=== PATIENT | female | born 1940 | race Caucasian/White ===

== ENCOUNTER 2016-07-30 13:34 | Observation (INO) | payer OTHER, MEDICARE ==
[~2016-07-30] VITALS: Ht 165.1 cm; Wt 43.3 kg
[~2016-07-30 13:34] MED LIST: ADVAIR 100-501 EACH INH; ADVAIR DISKU 11 UNIT INH; ALBUTEROL0.09 MG/A1 INH; ALBUTEROL2.5 MG/3 M INH/SOL; ALEVE220 M2 PO; AMOX-CLAV 875-1 EACH PO; BREO ELLIPTA 11 EACH; COUMADIN4 M1 PO; CYCLOBENZAPRINE5 M2 PO; DOCUSATE SODIU100 M3 PO; ESTRADIOL0.0375 MG1 TOP; FLEXERIL 5MG TAB5 MG PO; HYDROXYZINE HCL25 M2 PO; IBUPROFEN600 M1 PO; LOVENOX40 MG/0.1 SC; NEXIUM40 M1 PO; OXYGEN NAS; PROAIR HFA8.5 GM INH; PROVENTIL HFA6.7 GM INH; SYMBICORT 16010.2 GM INH; VIVELLE-DOT1 EAC1 TD; VIVELLE-DOT1 EAC2 TOP; ZOFRAN ODT4 M1 SL
--- NOTE | 2016-07-30 13:42 | NUR ---
BIBA FROM HOME, WITH C/O DIARRHEA X 1 HOUR AND RIGHT LOWER ABD BACK RADIATING TO BACK. DENIES NAUSEA OR VOMITING. PT HAS GT AND "TUBE DRAINING PANCREAS". HX APPY
--- NOTE | 2016-07-30 13:54 | NUR ---
DAUGHTER AND AT BEDSIDE AT THIS TIME.
--- NOTE | 2016-07-30 13:54 | NUR ---
STUDENT PA IN TO EVAL.
--- NOTE | 2016-07-30 14:17 | ED GI/GU/ABDOMINAL COMPLAINT ---
See Addendum History of Present Illness General Chief Complaint: Abdominal Pain/Flank Pain Stated Complaint: BIBA ABD PAIN Source: patient, old records Exam Limitations: no limitations Allergies Coded Allergies: codeine (HYPERVENTILATE - SOB 11/18/15) Triage Note: BIBA FROM HOME, WITH C/O DIARRHEA X 1 HOUR AND RIGHT LOWER ABD BACK RADIATING TO BACK. Triage Nurses Notes Reviewed? yes ? N Is pt currently ? No Onset: Gradual Duration: getting worse Timing: recent history Quality/Severity: sharpness, severe, stabbing, throbbing Severity Numbers: 8 Location: generalized abdomen Radiation: no radiation HPI: Patient is a 76-year-old female with past medical history of lung metastasis and pancreatic cancer, COPD and recent admission to [facility] approximately one month ago for concerns of pulmonary embolism-DVT and aspiration pneumonia. Patient currently is on warfarin. Patient does have a six-month history in which she had concerns of a "blocked" bile duct which she currently has an indwelling drain. Patient also has a feeding tube placed remotely. Patient complains of a six-day history of abdominal pain most localized to the epigastric region and nonradiating. Patient and family members state that in the past day patient has had significant worsening of pain and has had significant worsening of generalized weakness and fatigue lethargy and concerns of dehydration. Denies any fevers but does have chills. Denies any back pain hematuria dysuria. Patient had loose watery stool production today no blood no melena noted. Denies any chest pain or pain jaw pain shortness of breath cough hemoptysis DIARRHEA NOTED IN LAST 24 HOURS NO ABX USE RECENTLY (RETA PALENCIA,CRUZ) Vital Signs & Intake/Output Vital Signs & Intake/Output Vital Signs Date Time Temp Pulse Resp B/P Pulse O2 O2 Flow FiO2 Ox Delivery Rate 07/31 1420 Nasal 3.0L Cannula 07/31 1420 97 Nasal 3.0L Cannula ED Intake and Output 08/01 0000 07/31 1200 Intake Total 800 5813 Output Total 325 310 Balance 475 5503 Intake, IV 800 5773 Intake, Oral 0 0 Intake, Tube 40 Irrigant Number 0 0 Bowel Movements Output, Other 125 90 Output, Urine 200 220 Patient 95 lb 7.01 oz Weight Reconcile Medications Albuterol Sulfate (Proair Hfa) 90 MCG HFA.AER.AD 2 PUF INH Q4-6 PRN PRN BREATHING PROBLEMS (Reported) Esomeprazole (Nexium) 40 MG CAPSULE.DR 1 CAP PO DAILY GI (Reported) Estradiol (Vivelle-Dot) 1 EACH PATCH.TDSW 0.0375 MG TD SW HORMONE REPLACEMENT (Reported) Fluticasone/Vilanterol (Breo Ellipta 100-25 Mcg INH) 100 MCG-25 MCG/DOSE BLST.W.DEV BREATHING PROBLEMS (Reported) Tramadol HCl 50 MG TABLET 1 TAB PO Q6P PRN PAIN (Reported) Warfarin Sodium (Coumadin) 4 MG TABLET 1 TAB PO DAILY BLOOD THINER Hold this medication today (07/04). please start taking this medication 4 mg begning from 07/04/16. Check INR on 07/05/16 and report result to PCP, so he can dose medication accordingly. (PING MONDRAGON,JEFFREY Rosales) Past History Travel History Traveled to [place] past 21 day No Medical History Any Pertinent Medical History? 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 No (CRUZ ESQUIVEL) Review of Systems Review of Systems Constitutional: Reports: see HPI, chills, weakness. EENTM: Reports: no symptoms. Respiratory: Reports: no symptoms. Cardiovascular: Reports: no symptoms. GI: Reports: see HPI, abdominal pain. Genitourinary: Reports: no symptoms. Musculoskeletal: Reports: no symptoms. Skin: Reports: no symptoms. Neurological/Psychological: Reports: no symptoms. Hematologic/Endocrine: Reports: no symptoms. Immunologic/Allergic: Reports: no symptoms. All Other Systems: Reviewed and Negative (CRUZ ESQUIVEL) Physical Exam Physical Exam General Appearance: no apparent distress, cachetic Head: atraumatic Eyes: Bilateral: normal appearance, PERRL, EOMI. Ears, Nose, Throat, Mouth: hearing grossly normal Neck: normal inspection, supple Respiratory: normal breath sounds, chest non-tender, no respiratory distress Cardiovascular: regular rate/rhythm Peripheral Pulses: 2+ brachial (R), 2+ brachial (L) Gastrointestinal: normal bowel sounds, soft, GENERALIZED POINT TENDERNESS NOTED Back: normal inspection Extremities: normal range of motion Skin: intact, normal color, warm/dry Core Measures ACS in differential dx? No Severe Sepsis Present: Yes BC x2: Yes Lactic Acid x2: Yes IV ABX Broad Spectrum: Yes NS/LR Started: Yes Septic Shock Present: Yes BC x2: Yes Lactic Acid: Yes IV ABX Broad Spectrum: Yes Focused Exam Completed: Yes NS/LR 30ml/kg w/in 3hrs: Yes IV Vasopressors started: No (RETA PALENCIA,CRUZ) Progress Differential Diagnosis: AAA, AMI, appendicitis, biliary colic, bowel obstruction , colon cancer, diverticulitis, endometritis, esophageal varices, gastritis, hepatitis, hernia, hemorrhoids, ischemic bowel, inflamm bowel dis, kidney stone, Farzaneh-Heidi tear, ovarian cyst, ovarian torsion, pancreatitis, PID/cervicitis, peptic ulcer, PUD/GERD, perforated viscous, SBO, UTI/pyelo Diagnostic Imaging: Viewed by Me: CT Scan. Radiology Impression: acute abnormality Initial ED EKG: SINUS TACHYCARDIA 125 BPM Comments: PATIENT: REESE THOMAS PRESENT AGE: 76 PATIENT ACCOUNT NO: [id number] : 41 LOCATION: [facility] ORDERING PHYSICIAN: CRUZ PALENCIA SERVICE DATE: 07/30/16 EXAM TYPE: CAT - CT ABD & PELVIS W IV CONTRAST; CT CHEST W IV CONTRAST EXAMINATION: CT CHEST WITH CONTRAST CT ABDOMEN AND PELVIS WITH CONTRAST CLINICAL INFORMATION: Epigastric pain, history of metastasis lung to pancreas. COMPARISON: CT abdomen and pelvis dated 06/28/[address] chest dated 06/21/2016. TECHNIQUE: Multidetector volumetric imaging was performed from the thoracic inlet through the pubic symphysis following administration of intravenous contrast material. A total of 80 mL Optiray 320 was administered. Sagittal and coronal reformatted images were obtained on the technologist's workstation. DLP: 347 mGy-cm FINDINGS: CHEST: LUNG: The large right pneumothorax is slightly decreased in size as compared to prior. There is slightly improved aeration along the anterior margin of the right upper lobe as compared to prior. Pleural thickening/scarring is again noted, most pronounced at the inferior/anterior margin of the right middle lobe. Postsurgical changes of prior right lower lobectomy are evident. The previously seen rounded opacity at the lateral costophrenic sulcus of the left lower lobe is increased in size, now measuring 2.9 x 2.2 cm (previously 1.8 x 1.2 cm). Two additional, new rounded opacities are present just anterior to this in the left lower lobe, measuring 1.9 x 1.9 cm and 1.5 x 1.3 cm. These are most concerning for metastatic disease. Additionally, there is a spiculated lesion in the left upper lobe (image 13/60 of series 3) which measures 0.8 x 0.6 cm, increased in size from 0.6 x 0.5 cm on the prior study. A few calcified granulomas are present. Numerous small subcentimeter pulmonary nodules are identified which are not significantly changed as compared to prior. The 2 mm nodule in the left lower lobe on image 40/60 of series 3, as an example, is unchanged. Mild to moderate underlying centrilobular pulmonary emphysema is noted. MEDIASTINUM: There is a centrally hypodense lymph node in the AP window (image 22/122 of series 2) which has not significantly changed in size from prior, measuring 2.5 x 1.5 cm. No additional mediastinal adenopathy is identified. Calcific atherosclerosis is present in the thoracic aorta and coronary arteries. Heart is normal in size. No pericardial effusion. PERICARDIUM/PLEURA: There is a trace fluid component to the large right hydropneumothorax. This is unchanged from the prior CT abdomen and pelvis dated 06/28/2016. No pleural based lesions are identified. CHEST WALL/AXILLA: Unremarkable. ABDOMEN/PELVIS: LIVER, GALLBLADDER, BILIARY TREE: Again seen are multiple hypoattenuating, water density hepatic lesions, the largest of which are present in hepatic segment 2, measuring 1.6 and 1.4 cm in greatest diameter, unchanged from prior. Percutaneous biliary stent extends through the right hepatic lobe and common bile duct, terminating in the second portion of the duodenum. Gallbladder is absent. PANCREAS: Again seen is irregular dilatation of the pancreatic duct with significant pancreatic atrophy. As previously noted, the pancreatic duct measures up to 1.3 cm in diameter at the pancreatic tail, unchanged. The obstructing lesion is not well seen by CT. SPLEEN: Unremarkable. ADRENAL GLANDS: Unremarkable. KIDNEYS AND URETERS: Multiple bilateral renal cysts are again noted. No suspicious lesions are identified. A 2 mm nonobstructing calculus is again seen is the left lower renal pole. Kidneys enhance symmetrically. No hydronephrosis. Ureters are unremarkable. BLADDER: Unremarkable. GASTROINTESTINAL TRACT: Percutaneous gastrostomy Peg tube terminates at the gastric antrum. Stomach, small bowel, and colon are normal in caliber. There is diffuse wall thickening in the colon with mild mucosal hyperemia and mild pericolonic fat stranding, most likely due to a diffuse infectious colitis. Other causes of pancreatitis are also on the differential. There is a column of fecal material in the terminal ileum, likely due to delayed bowel transit. No small bowel dilatation. No significant intraperitoneal free fluid or free air. ABDOMINAL WALL: No significant hernia is appreciated. LYMPHOVASCULAR STRUCTURES: Calcific atherosclerosis is present in the abdominal aorta. No adenopathy. PELVIC VISCERA: Uterus is not identified, likely surgically absent. OSSEUS STRUCTURES: Diffuse idiopathic skeletal hyperostosis is present in the thoracic spine with hyperkyphosis. There is right convex lumbar scoliosis with multilevel degenerative disc disease and facet arthropathy in the lower lumbar spine. Spinous processes are surgically absent from L3 through L5-S1, consistent with prior posterior decompression. Marked facet arthropathy is present in these regions. IMPRESSION: CHEST: 1. No significant change in the large chronic ex vacuo right hydropneumothorax, predominantly gas with a trace effusion. 2. Three rounded foci of soft tissue density in the left lung at the lateral costophrenic sulcus, most compatible with metastatic disease. 3. Slight increase in the size of an 8 mm spiculated nodule in the left upper lobe (previously 0.6 cm), also concerning for metastatic disease. 4. Unchanged enlarged AP window lymph node. ABDOMEN AND PELVIS: 1. Diffuse wall thickening and inflammation in the colon, most likely due to an infectious pancolitis. 2. Multiple unchanged foci of hypoattenuation in the liver, most likely due to cysts. 3. Percutaneous gastrostomy tube, unchanged. Percutaneous biliary stent remains in place, terminating in the second portion of the duodenum. 4. No significant intraperitoneal free fluid. 5. Diffuse pancreatic ductal dilatation with associated pancreatic atrophy, unchanged. (CRUZ ESQUIVEL) Plan of Care: Orders Procedure Date/time Status Change service to 07/31 1630 Active Code Status 07/31 1629 Active RT: Evaluation 07/31 1434 Active Wolf, Insertion/Removal/Asses 07/31 1158 Active Code Status 07/31 1151 Complete TRC EVALUATION (GEN) 07/31 UNK Complete THERAPIST ORDERS 07/31 UNK Complete OXYGEN SETUP (GEN) 07/31 UNK Complete Discharge Patient 07/31 UNK Active Patient currently is in no apparent distress however patient was complaining of generalized abdominal pain. Patient was noted to have a critical finding of leukocytosis however initially there was concerns of worsening metastasis due to patient's significant leukocytosis and abdominal pain. There were no source to patient's leukocytosis and patient had no fever and was antibiotics were initially not administered. The blood work for her complete metabolic panel had hemolyzed in which the CT scan was delayed however WHEN CT scan was resulted for concerns of pancolitis was likely infectious process that antibiotics were immediately administered. Patient was given 3 L of normal saline resuscitation with no improvement of blood pressure. Patient currently NOW HAS signs and symptoms of septic shock Patient currently is DNR/DNI and with central line placement was discussed with the family and patient reports currently deciding whether or not to proceed with this invasive procedure. Discussed risk and benefits with patient with central line placement Patient had recurrence of abdominal pain in which 2 mg of morphine was administered in intervals. PT AND FAMILY DECIDED ON PLACEMENT OF CENTRAL LINE PT WAS ADMITTED TO HOSPITALIST TO ICU FOR SEPTIC SHOCK DISCUSSED ADMISSION WITH DR FENG CENTRAL LINE WAS PLACED BY RESIDENT (CRUZ ESQUIVEL) ED Sepsis Exam Date of Focused Sepsis Exam: 07/30/16 Time of Focused Sepsis Exam: 1740 Sepsis Cardiac Exam: Tachycardia Sepsis Resp Exam: CTA Sepsis Cap Refill Exam: <2 Sec Sepsis Peripheral Pulse Exam: Weak Sepsis Peripheral Pulse Location: Dorsalis Pedis Sepsis Skin Color Exam: Normal for Ethnicity Skin Temp/Moisture Exam: Warm/Dry (CRUZ ESQUIVEL) Departure Departure Disposition: STILL A PATIENT Condition: Critical Clinical Impression Primary Impression: Sepsis Secondary Impressions: Leukocytosis, Pancolitis Referrals: CORREA MD,VENKAT A. (PCP/Family) Departure Forms: Customer Survey General Discharge Information Admission Note Spoke With: KITTY SANTANA MD Documentation of Exam: Documentation of any treatments & extenuating circumstances including Concerns Regarding Discharge (functional status, medication knowledge or non-compliance, living conditions, etc.) that warrant an admission rather than observation: [ DISCUSSED PT WITH DR SANTANA AND SHE ADVISED PT TO BE ADMITTED TO ICU FOR SEPTIC SHOCK PT REQUIRES CENTRAL LINE PLACEMENT, IV ABX, IV FLUID RESUSCITATION, REPEAT LABS STOOL AND BLOOD CX PENDING, GI CONSULT] (RETA PALENCIA,CRUZ) PA/WOODEN BARREL MECHANIC Co-Sign Statement Statement: ED Attending supervision documentation- [X] I saw and evaluated the patient. I have also reviewed all the pertinent lab results and diagnostic results. I agree with the findings and the plan of care as documented in the PA's/WOODEN BARREL MECHANIC's documentation. [] I have reviewed the ED Record and agree with the PA's/WOODEN BARREL MECHANIC's documentation. [] Additions or exceptions (if any) to the PAs/WOODEN BARREL MECHANIC's note and plan are summarized below: [] (SHAQ MONDRAGON,HANH Medina) PA/WOODEN BARREL MECHANIC Co-Sign Statement Statement: ED Attending supervision documentation- [X] I saw and evaluated the patient. I have also reviewed all the pertinent lab results and diagnostic results. I agree with the findings and the plan of care as documented in the PA's/WOODEN BARREL MECHANIC's documentation. [X] I have reviewed the ED Record and agree with the PA's/WOODEN BARREL MECHANIC's documentation. [] Additions or exceptions (if any) to the PAs/WOODEN BARREL MECHANIC's note and plan are summarized below: [Patient has known metastatic cancer has a draining biliary tube patient's white count is up to 68,000 and she is hypotensive. Patient had a large diarrheal bowel movement earlier today and now has abdominal distention and abdominal pain. Her CAT scan is consistent with pancolitis. She may be suffering from C. difficile colitis. At this point the family would like a triple-lumen catheter inserted for her persistent hypotension despite multiple liters of fluids. I'll supervise the insertion of the triple-lumen.] (PING MONDRAGON,JEFFREY Rosales) Procedures Central Line Central Line Lumen: triple Central Line Procedure: Yes: bentadine prep?, sterile drapes applied, sterile dressing applied. Central Line Position: internal jugular (R) Anesthesia: lidocaine 1% CC's of Anesthesia: 4 Complications: none Central Line Post Position: sutured, good blood return, position confirmed w/ CXR Progress: Performed by SLIME Fleming, RVU goes to SLIME Fleming (TYRESE PALENCIA,LY) Critical Care Note Critical Care Note Critical Care Time: 75-104 min (RETA PALENCIA,CRUZ) Anion Gap 6, Estimated GFR > 60, Glucose 78, Calcium 7.0 L, Phosphorus 4.4, Magnesium 1.7, Total Bilirubin 0.6, AST 14, ALT 34, Albumin 1.5 L, PT 18.0 H, INR 1.72 H, CBC w Diff MAN DIFF ORDERED, RBC 2.93 L, MCV 103.1 H, MCH 34.9 H , RDW 17.5 H, MPV 8.8, Gran % 96.5 H, Lymphocytes % 2.1 L, Monocytes % 1.3 L , Eosinophils % 0.1, Basophils % 0 L, Absolute Granulocytes 71.6 H, Segmented Neutrophils 93 H, Band Neutrophils 2, Absolute Lymphocytes 1.6, Monocytes 5, Absolute Monocytes 1.0 H, Absolute Eosinophils 0.1, Absolute Basophils 0, Platelet Estimate INCREASED, Polychromasia 1+, Poikilocytosis 1+, Anisocytosis 1 +, Macrocytic Cells 1+, Ovalocytes 1+, Stomatocytes FEW, PUBS MCHC 33.8, Fld Total RBCs Counted 100 07/31/16 0100: Lactic Acid Cancelled 07/30/16 2255: Lactic Acid 0.8, PT Cancelled, INR Cancelled 07/30/16 2245: Urine Color YEL, Urine Clarity CLEAR, Urine pH 6.0, Ur Specific [place] 1.015, Urine Protein NEG, Urine Ketones NEG, Urine Nitrite NEG, Urine Bilirubin NEG, Urine Urobilinogen 0.2, Ur Leukocyte Esterase NEG, Ur Microscopic EXAM NOT REQUIRED, Urine Hemoglobin NEG, Urine Glucose NEG Microbiology 07/31 119 BODY FLUID: Body Fluid Culture - RES 07/31 119 BODY FLUID: Gram Stain - RES 07/30 2349 UPPER RESP: Surveillance Culture - RECD 07/30 2349 GI: Surveillance Culture - RECD 07/30 2244 URINE ROUT: Urine Culture - RES Patient currently is in no apparent distress however patient was complaining of generalized abdominal pain. Patient was noted to have a critical finding of leukocytosis however initially there was concerns of worsening metastasis due to patient's significant leukocytosis and abdominal pain. There were no source to patient's leukocytosis and patient had no fever and was antibiotics were initially not administered. The blood work for her complete metabolic panel had hemolyzed in which the CT scan was delayed however WHEN CT scan was resulted for concerns of pancolitis was likely infectious process that antibiotics were immediately administered. Patient was given 3 L of normal saline resuscitation with no improvement of blood pressure. Patient currently NOW HAS signs and symptoms of septic shock Patient currently is DNR/DNI and with central line placement was discussed with the family and patient reports currently deciding whether or not to proceed with this invasive procedure. Discussed risk and benefits with patient with central line placement Patient had recurrence of abdominal pain in which 2 mg of morphine was administered in intervals. PT AND FAMILY DECIDED ON PLACEMENT OF CENTRAL LINE PT WAS ADMITTED TO HOSPITALIST TO ICU FOR SEPTIC SHOCK DISCUSSED ADMISSION WITH DR FENG CENTRAL LINE WAS PLACED BY RESIDENT (CRUZ ESQUIVEL) ED Sepsis Exam Date of Focused Sepsis Exam: 07/30/16 Time of Focused Sepsis Exam: 1740 Sepsis Cardiac Exam: Tachycardia Sepsis Resp Exam: CTA Sepsis Cap Refill Exam: <2 Sec Sepsis Peripheral Pulse Exam: Weak Sepsis Peripheral Pulse Location: Dorsalis Pedis Sepsis Skin Color Exam: Normal for Ethnicity Skin Temp/Moisture Exam: Warm/Dry (CRUZ ESQUIVEL) Departure Departure Disposition: STILL A PATIENT Condition: Critical Clinical Impression Primary Impression: Sepsis Secondary Impressions: Leukocytosis, Pancolitis Referrals: CORREA VENKAT MONDRAGON (PCP/Family) Departure Forms: Customer Survey General Discharge Information Admission Note Spoke With: KITTY SANTANA MD Documentation of Exam: Documentation of any treatments & extenuating circumstances including Concerns Regarding Discharge (functional status, medication knowledge or non-compliance, living conditions, etc.) that warrant an admission rather than observation: [ DISCUSSED PT WITH DR SANTANA AND SHE ADVISED PT TO BE ADMITTED TO ICU FOR SEPTIC SHOCK PT REQUIRES CENTRAL LINE PLACEMENT, IV ABX, IV FLUID RESUSCITATION, REPEAT LABS STOOL AND BLOOD CX PENDING, GI CONSULT] (CRUZ ESQUIVEL) PA/WOODEN BARREL MECHANIC Co-Sign Statement Statement: ED Attending supervision documentation- [X] I saw and evaluated the patient. I have also reviewed all the pertinent lab results and diagnostic results. I agree with the findings and the plan of care as documented in the PA's/WOODEN BARREL MECHANIC's documentation. [] I have reviewed the ED Record and agree with the PA's/WOODEN BARREL MECHANIC's documentation. [] Additions or exceptions (if any) to the PAs/WOODEN BARREL MECHANIC's note and plan are summarized below: [] (SHAQ MONDRAGON,HANH Medina) PA/WOODEN BARREL MECHANIC Co-Sign Statement Statement: ED Attending supervision documentation- [X] I saw and evaluated the patient. I have also reviewed all the pertinent lab results and diagnostic results. I agree with the findings and the plan of care as documented in the PA's/WOODEN BARREL MECHANIC's documentation. [X] I have reviewed the ED Record and agree with the PA's/WOODEN BARREL MECHANIC's documentation. [] Additions or exceptions (if any) to the PAs/WOODEN BARREL MECHANIC's note and plan are summarized below: [Patient has known metastatic cancer has a draining biliary tube patient's white count is up to 68,000 and she is hypotensive. Patient had a large diarrheal bowel movement earlier today and now has abdominal distention and abdominal pain. Her CAT scan is consistent with pancolitis. She may be suffering from C. difficile colitis. At this point the family would like a triple-lumen catheter inserted for her persistent hypotension despite multiple liters of fluids. I'll supervise the insertion of the triple-lumen.] (PING MONDRAGON,JEFFREY Rosales) Procedures Central Line Central Line Lumen: triple Central Line Procedure: Yes: bentadine prep?, sterile drapes applied, sterile dressing applied. Central Line Position: internal jugular (R) Anesthesia: lidocaine 1% CC's of Anesthesia: 4 Complications: none Central Line Post Position: sutured, good blood return, position confirmed w/ CXR Progress: Performed by SLIME Fleming, RVU goes to SLIME Fleming (TYRESE PALENCIA,LY) Critical Care Note Critical Care Note Critical Care Time: 75-104 min (RETA PALENCIA,CRUZ)
[2016-07-30] MEDS ORDERED: TRAMADOL HCL50 M1 PO (14:19)
--- NOTE | 2016-07-30 14:39 | NUR ---
RCUZ PALENCIA IN TO EVAL AT THIS TIME. AND DAUGHTER AT BEDSIDE.
--- NOTE | 2016-07-30 15:09 | NUR ---
BLOODWORK, SST,LAV,BLUE,FELIZ AND PINK TOP TUBES SENT TO LAB.
[2016-07-30 15:19] LABS: ABSOLUTE BASOPHIL COUNT 0 /CUMM (0.0-0.2); ABSOLUTE EOSINOPHIL COUNT 0 /CUMM (0.0-0.7); ABSOLUTE GRANULOCYTE CT 65.5 /CUMM (1.4-6.5); ABSOLUTE MONOCYTE COUNT 1.3 /CUMM (0.10-0.60); BASOPHIL % 0 % (0.0-2.0); EOSINOPHIL % 0 % (0-5); GRANULOCYTE % 96.6 % (42.2-75.2); HEMATOCRIT 34.3 % (37-47); MEAN CORPUSCULAR HGB CONC 33.2 G/DL (33.0-37.0); MEAN CORPUSCULAR VOLUME 102.5 FL (81.0-99.0); MEAN PLATELET VOLUME 8.4 FL (7.4-10.4); PLATELET COUNT 530 /CUMM (130-400); RBC DISTRIBUTION WIDTH 17.6 % (11.5-14.5); RED BLOOD CELL CT 3.35 /CUMM (4.20-5.40)
[2016-07-30 15:33] LABS: WHITE BLOOD CELL COUNT 67.8 /CUMM (4.8-10.8)
--- NOTE | 2016-07-30 15:33 | NUR ---
CRITICAL TEST RESULTS [id number] REESE THOMAS 76 F TESTS AND RESULTS: WBC: 67.8 Results received and read back by: SAIDA PELAEZ Results received date and time: 07/30/16 1533 The following provider was notified of the results, and read the results back: CRUZ PALENCIA. Notified date and time: 07/30/16 at 1533
[2016-07-30 15:41] LABS: PT 14.6 SEC (9.4-12.5); PTT 31 SEC (25-37)
--- NOTE | 2016-07-30 15:45 | NUR ---
ATTEMPT X2 FOR 2ND SET BC&SST
--- NOTE | 2016-07-30 15:50 | NUR ---
ASSUMED CARE OF PT. PT INFORMED OF PLAN OF CARE OF CT SCAN AND SECOND SET OF BLOOD CULTURES. PT RESTING QUIETLY, STATES NO NEEDS AT PRESENT
--- NOTE | 2016-07-30 16:33 | NUR ---
SECOND SET OF BLOOD CULTURES DRAWN AND REDRAW SST SENT TO LAB. PT MEDICATED WITH MORPHINE AND SECOND LITER IF IVF STARTED
--- NOTE | 2016-07-30 17:16 | NUR ---
BILIARY DRAIN LEAKING YELLOW/GREEN FLUID AROUND TUBE. NOTED THAT TUBE APPEARS DISLODGED (SUTURES THAT SHOULD BE AT SKIN LEVEL ARE STICKING OUT APPROX 4 INCHES FROM SKIN). FAMILY REPORTS THAT TUBE DID GET PULLED OUT SOME A FEW WEEKS AGO. FAMILY STATES LEAKAGE AROUND TUBE STARTED TODAY. DRESSING REMOVED. SITE CLEANED WITH CHLORHEXIDINE AND REDRESSED WITH DRY DRESSING. GT TUBE ALSO REDRESSED. GTUBE SITE WITHOUT REDNESS OR SKIN BREAKDOWN L
--- NOTE | 2016-07-30 17:24 | NUR ---
PT SENT FOR CT SCAN
--- NOTE | 2016-07-30 17:51 | NUR ---
RETURNED FROM CT SCAN. IVF BOLUS SECOND BAG HALF WAY INFUSED. IV FLUSHED AND ARM STRAIGHTENED TO ENCOURAGE FLOW THROUGH LINE. MANUAL B/P CHECKED AND REPORTED TO CRUZ MCDUFFIE
--- NOTE | 2016-07-30 18:46 | CT SCAN REPORT ---
EXAMINATION: CT CHEST WITH CONTRAST CT ABDOMEN AND PELVIS WITH CONTRAST CLINICAL INFORMATION: Epigastric pain, history of metastasis lung to pancreas. COMPARISON: CT abdomen and pelvis dated 06/28/[address] chest dated 06/21/2016. TECHNIQUE: Multidetector volumetric imaging was performed from the thoracic inlet through the pubic symphysis following administration of intravenous contrast material. A total of 80 mL Optiray 320 was administered. Sagittal and coronal reformatted images were obtained on the technologist's workstation. DLP: 347 mGy-cm FINDINGS: CHEST: LUNG: The large right pneumothorax is slightly decreased in size as compared to prior. There is slightly improved aeration along the anterior margin of the right upper lobe as compared to prior. Pleural thickening/scarring is again noted, most pronounced at the inferior/anterior margin of the right middle lobe. Postsurgical changes of prior right lower lobectomy are evident. The previously seen rounded opacity at the lateral costophrenic sulcus of the left lower lobe is increased in size, now measuring 2.9 x 2.2 cm (previously 1.8 x 1.2 cm). Two additional, new rounded opacities are present just anterior to this in the left lower lobe, measuring 1.9 x 1.9 cm and 1.5 x 1.3 cm. These are most concerning for metastatic disease. Additionally, there is a spiculated lesion in the left upper lobe (image 13/60 of series 3) which measures 0.8 x 0.6 cm, increased in size from 0.6 x 0.5 cm on the prior study. A few calcified granulomas are present. Numerous small subcentimeter pulmonary nodules are identified which are not significantly changed as compared to prior. The 2 mm nodule in the left lower lobe on image 40/60 of series 3, as an example, is unchanged. Mild to moderate underlying centrilobular pulmonary emphysema is noted. MEDIASTINUM: There is a centrally hypodense lymph node in the AP window (image 22/122 of series 2) which has not significantly changed in size from prior, measuring 2.5 x 1.5 cm. No additional mediastinal adenopathy is identified. Calcific atherosclerosis is present in the thoracic aorta and coronary arteries. Heart is normal in size. No pericardial effusion. PERICARDIUM/PLEURA: There is a trace fluid component to the large right hydropneumothorax. This is unchanged from the prior CT abdomen and pelvis dated 06/28/2016. No pleural based lesions are identified. CHEST WALL/AXILLA: Unremarkable. ABDOMEN/PELVIS: LIVER, GALLBLADDER, BILIARY TREE: Again seen are multiple hypoattenuating, water density hepatic lesions, the largest of which are present in hepatic segment 2, measuring 1.6 and 1.4 cm in greatest diameter, unchanged from prior. Percutaneous biliary stent extends through the right hepatic lobe and common bile duct, terminating in the second portion of the duodenum. Gallbladder is absent. PANCREAS: Again seen is irregular dilatation of the pancreatic duct with significant pancreatic atrophy. As previously noted, the pancreatic duct measures up to 1.3 cm in diameter at the pancreatic tail, unchanged. The obstructing lesion is not well seen by CT. SPLEEN: Unremarkable. ADRENAL GLANDS: Unremarkable. KIDNEYS AND URETERS: Multiple bilateral renal cysts are again noted. No suspicious lesions are identified. A 2 mm nonobstructing calculus is again seen is the left lower renal pole. Kidneys enhance symmetrically. No hydronephrosis. Ureters are unremarkable. BLADDER: Unremarkable. GASTROINTESTINAL TRACT: Percutaneous gastrostomy Peg tube terminates at the gastric antrum. Stomach, small bowel, and colon are normal in caliber. There is diffuse wall thickening in the colon with mild mucosal hyperemia and mild pericolonic fat stranding, most likely due to a diffuse infectious colitis. Other causes of pancreatitis are also on the differential. There is a column of fecal material in the terminal ileum, likely due to delayed bowel transit. No small bowel dilatation. No significant intraperitoneal free fluid or free air. ABDOMINAL WALL: No significant hernia is appreciated. LYMPHOVASCULAR STRUCTURES: Calcific atherosclerosis is present in the abdominal aorta. No adenopathy. PELVIC VISCERA: Uterus is not identified, likely surgically absent. OSSEUS STRUCTURES: Diffuse idiopathic skeletal hyperostosis is present in the thoracic spine with hyperkyphosis. There is right convex lumbar scoliosis with multilevel degenerative disc disease and facet arthropathy in the lower lumbar spine. Spinous processes are surgically absent from L3 through L5-S1, consistent with prior posterior decompression. Marked facet arthropathy is present in these regions. IMPRESSION: CHEST: 1. No significant change in the large chronic ex vacuo right hydropneumothorax, predominantly gas with a trace effusion. 2. Three rounded foci of soft tissue density in the left lung at the lateral costophrenic sulcus, most compatible with metastatic disease. 3. Slight increase in the size of an 8 mm spiculated nodule in the left upper lobe (previously 0.6 cm), also concerning for metastatic disease. 4. Unchanged enlarged AP window lymph node. ABDOMEN AND PELVIS: 1. Diffuse wall thickening and inflammation in the colon, most likely due to an infectious pancolitis. 2. Multiple unchanged foci of hypoattenuation in the liver, most likely due to cysts. 3. Percutaneous gastrostomy tube, unchanged. Percutaneous biliary stent remains in place, terminating in the second portion of the duodenum. 4. No significant intraperitoneal free fluid. 5. Diffuse pancreatic ductal dilatation with associated pancreatic atrophy, unchanged.
--- NOTE | 2016-07-30 18:50 | NUR ---
COMPLAINING ON NEW ONSET ABDOMINAL PAIN AFTER GETTING CT SCAN. STATES IT IS A BURNING PAIN 8 OUT OF 10. GIVEN MORPHINE
--- NOTE | 2016-07-30 19:01 | NUR ---
CRUZ IN TO SEE PT. CRUZ NOTIFIED THAT PT IS STILL HAVING ABDOMINAL PAIN DESPITE GETTING MORPHINE
--- NOTE | 2016-07-30 20:19 | NUR ---
LY PALENCIA IN TO PLACE CENTRAL LINE
--- NOTE | 2016-07-30 20:57 | NUR ---
CENTRAL LINE PLACED IN RIGHT CHEST BY LY PALENCIA. PT TOLERATED PROCEDURE WELL. POSITIVE BLOOD RETURN IN ALL THREE PORTS OF CENTRAL LINE. LINE DRESSED WITH STERILE DRESSING AND BIOPATCH
--- NOTE | 2016-07-30 21:07 | NUR ---
HANDS COOL, UNABLE TO OBTAIN GOOD SAT READING. SATS SHOWING 89% ON ROOM AIR WITH POOR WAVE FORM. PLACED ON 2 LITERS A PRECAUTION
--- NOTE | 2016-07-30 21:25 | NUR ---
PT RESTING QUIETLY. NO URGE TO VOID. HAS NOT VOIDED SINCE ARRIVAL TO ED. S/P 3 LITERS IVF INFUSED, CURRENTLY ON 4TH LITER OF FLUID
--- NOTE | 2016-07-30 21:31 | History & Physical ---
JOVANYCRUZ 07/30/162130: General Information and HPI MD Statement: I have seen and personally examined REESE THOMAS and documented this H&P. The patient is a 76 year old F who presented with a patient stated chief complaint of [Abdominal pain and diarrhea]. 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 Patient reports sharp abdominal pain located in the in the epigastric area going to the right hypochondrium and also radiating to the back it's constantly around 8-9 out of 10 in pain is present all the time she does not know any relieving factors. She reports diarrhea for the past 3 days for the past 24 hours had had about 5 motions it's not extraordinarily foul-smelling and has no blood staining it. He denies any fevers but followed has history of chills he has no nausea or vomiting. Patient has a recent antibiotic use ampicillin and Augmentin with in the past 1 month. This patient has been on tube feedings since last admission in mid June when she was found to have dysphagia aspirating she does not know the type of tube feeds will use but reports that she puts water flushes 133 mL 3 times a day around a total of 400 mL. Patient denies any shortness of breath, palpitation, dizziness, lightheadedness, change in urine frequency, painful while micturating. Allergies/Medications Allergies: Coded Allergies: codeine (HYPERVENTILATE - SOB 11/18/15) Home Med list Albuterol Sulfate (Proair Hfa) 90 MCG HFA.AER.AD 2 PUF INH Q4-6 PRN PRN BREATHING PROBLEMS (Reported) Esomeprazole (Nexium) 40 MG CAPSULE.DR 1 CAP PO DAILY GI (Reported) Estradiol (Vivelle-Dot) 1 EACH PATCH.TDSW 0.0375 MG TD SW HORMONE REPLACEMENT (Reported) Fluticasone/Vilanterol (Breo Ellipta 100-25 Mcg INH) 100 MCG-25 MCG/DOSE BLST.W.DEV BREATHING PROBLEMS (Reported) Tramadol HCl 50 MG TABLET 1 TAB PO Q6P PRN PAIN (Reported) Warfarin Sodium (Coumadin) 4 MG TABLET 1 TAB PO DAILY BLOOD THINER Hold this medication today (07/04). please start taking this medication 4 mg begning from 07/04/16. Check INR on 07/05/16 and report result to PCP, so he can dose medication accordingly. 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 Review of Systems Review of Systems Constitutional: Reports: chills. Denies: fever. EENTM: Denies: blurred vision, double vision. Cardiovascular: Denies: chest pain, palpitations. Respiratory: Denies: cough, short of breath. GI: Reports: see HPI. Genitourinary: Denies: dysuria, frequency, urgency. Musculoskeletal: Denies: no symptoms. Skin: Denies: no symptoms. Hematologic/Endocrine: Denies: bruising, bleeding. All Other Systems: Reviewed and Negative Exam & Diagnostic Data Last 24 Hrs of Vital Signs/I&O Vital Signs Date Time Temp Pulse Resp B/P Pulse O2 O2 Flow FiO2 Ox Delivery Rate 07/30 2309 99.5 122 18 100/61 98 Nasal 2.0L Cannula 07/30 2105 121 22 94/55 Nasal 2.0L Cannula 07/30 2006 116 90/50 07/30 1850 97.8 113 16 92/50 95 Room Air 07/30 1751 119 18 84/50 07/30 1648 95/50 07/30 1644 96.0 124 18 75/40 92 Room Air 07/30 1353 99.4 118 20 95/52 95 Room Air Room Air Intake & Output 07/30 1600 07/30 0800 07/30 0000 Intake Total 1000 Output Total Balance 1000 Intake, IV 1000 Patient 94 lb 15.99 oz Weight Physical Exam General Appearance Alert, Oriented X3, Cooperative, No Acute Distress Skin No Rashes, No Breakdown HEENT Atraumatic, very dry mucous membranes Neck Supple, No JVD Cardiovascular Regular Rate, Normal S1, Normal S2, No Murmurs Lungs Clear to Auscultation, Normal Air Movement Abdomen Normal Bowel Sounds, Soft, generalized tenderness more pronounced at the epigastric area and right hypochondrium, the area around the PEG tube and the bile duct tube ddoes not show evidence of infection Neurological Normal Speech, Normal Tone Extremities No Clubbing, No Cyanosis, cold extremities with pitting edema +2 Vascular weak pulses Last 24 Hrs of Labs/Alcon: Laboratory Tests 07/30/16 2255: Lactic Acid Pending 07/30/16 2245: Urine Color YEL, Urine Clarity CLEAR, Urine pH 6.0, Ur Specific [place] 1.015, Urine Protein NEG, Urine Ketones NEG, Urine Nitrite NEG, Urine Bilirubin NEG, Urine Urobilinogen 0.2, Ur Leukocyte Esterase NEG, Ur Microscopic EXAM NOT REQUIRED, Urine Hemoglobin NEG, Urine Glucose NEG 07/30/16 1630: Anion Gap 5, Estimated GFR > 60, BUN/Creatinine Ratio 34.0 H, Glucose 84, Lactic Acid 2.0, Calcium 7.7 L, Total Bilirubin 0.6, AST 16, ALT 37, Alkaline Phosphatase 175 H, Troponin I < 0.01, Total Protein 4.5 L, Albumin 1.8 L, Globulin 2.7, Albumin/Globulin Ratio 0.7 L, Amylase < 30 L, Lipase < 10 L 07/30/16 1500: PT 14.6 H, INR 1.40 H, APTT 31, CBC w Diff MAN DIFF ORDERED, RBC 3.35 L, MCV 102.5 H, MCH 34.0 H, RDW 17.6 H, MPV 8.4, Gran % 96.6 H, Lymphocytes % 1.5 L, Monocytes % 1.9, Eosinophils % 0, Basophils % 0 L, Absolute Granulocytes 65.5 H, Segmented Neutrophils 88 H, Band Neutrophils 8 H, Absolute Lymphocytes 1.0 L, Lymphocytes 2 L, Monocytes 2, Absolute Monocytes 1.3 H, Absolute Eosinophils 0, Absolute Basophils 0, Platelet Estimate VERIFIED BY SMEAR, Anisocytosis 1+, Macrocytic Cells 1+, PUBS MCHC 33.2 Microbiology 07/30 2309 UPPER RESP: Surveillance Culture - ORD 07/30 2309 GI: Surveillance Culture - ORD 07/30 2254 BODY FLUID: Body Fluid Culture - ORD 07/30 2254 BODY FLUID: Gram Stain - ORD 07/30 224 URINE ROUT: Urine Culture - RECD 07/30 1630 BLOOD: Blood Culture - RECD 07/30 1511 BLOOD: Blood Culture - RECD 07/30 143 STOOL: Clostridium difficile Toxin A & B - ORD 07/30 143 STOOL: Stool Culture - ORD Diagnostic Data EKG Results Sinus tachycardia 1 25 bpm regular with normal axis and no ST-T wave changes QRS shows evidence of ventricular hypertrophy CXR Results 1. Right IJ central venous catheter terminates near the cavoatrial junction 2. Chronic large extra-axial right pneumothorax, unchanged. 3. Nodular opacities in the left lower lobe are better seen on recent CT. Other Results CT Abdomen/Pelvis: ABDOMEN AND PELVIS: 1. Diffuse wall thickening and inflammation in the colon, most likely due to an infectious pancolitis. 2. Multiple unchanged foci of hypoattenuation in the liver, most likely due to cysts. 3. Percutaneous gastrostomy tube, unchanged. Percutaneous biliary stent remains in place, terminating in the second portion of the duodenum. 4. No significant intraperitoneal free fluid. 5. Diffuse pancreatic ductal dilatation with associated pancreatic atrophy, unchanged. Assessment/Plan Assessment: 76 years old lady with advanced lung cancer and metastasis with dysphagia and PEG tube in place presenting with abdominal pain and diarrhea for the past [address] scan evidence of colitis and recent history of antibiotic use. On presentation the patient was hypotensive and tachycardic with evidence of volume depletion. Problem list Hypotension probably from volume depletion or septic shock Hyponatremia Colitis Leukocytosis with bandemia Severe Malnutrition We'll admit the patient to the intensive care unit check vital signs every one hour, patient has received 4 L of bolus normal saline will give 500 mL bolus and then keep on high maintenance 250 mL/h, patient will get frequent reassessment at which time bolus can be given if still volume depleted and not maintaining pressure. Will get a repeat lactic acid, Blood culture, urine culture, culture of gallbladder fluid from the tube IV ceftriaxone 1000 mg daily and IV Flagyl 500 mg every 8 Patient is nothing by mouth will get nutritional evaluation for tube feeding and decompression of water flushes 400 mL per day she was taking is very little. Patient has PE and is supposed to be on warfarin but is subtherapeutic with INR of 1.4 will give 5 mg of PEG tube warfarin, recheck INR tomorrow and continue to dose Coumadin while patient subtherapeutic will continue to be on Lovenox 40 mg daily Normal saline will address the hyponatremia will follow up subsequent levels and address accordingly. TRC nebs and nebulization as needed per respiratory CODE STATUS: DNI/DNR As Ranked By This Provider Problem List: 1. History of COPD 2. Sepsis 3. Pancolitis 4. Dehydration 5. Subtherapeutic anticoagulation 6. COPD (chronic obstructive pulmonary disease) Core Measures/Miscellaneous Acute Coronary Syndrome ACS Diagnosis: No Cerebrovascular Accident CVA/TIA Diagnosis: No Congestive Heart Failure CHF Diagnosis: No Venous Thromboembolism VTE Risk Factors: Acute medical illness, Age > 40, Cancer/chemo/oth therapy VTE Prophylaxis Ordered Inpt: Pharm- Warfarin No Mech VTE prophylaxis d/t: No contraindications No VTE Pharm Prophylaxis d/t: No contraindications VTE Diagnosis: No VTE Type: NONE VTE Confirmed by (Test): NONE Severe Sepsis Severe Sepsis Present: Yes BC x2: Yes Lactic Acid x2: Yes IV ABX Broad Spectrum: Yes NS/LR Started: Yes Septic Shock Septic Shock Present: Yes BC x2: Yes Lactic Acid: Yes IV ABX Broad Spectrum: Yes Focused Exam Completed: Yes NS/LR 30ml/kg w/in 3hrs: Yes IV Vasopressors started: No Miscellaneous Documentation Attending Case Discussed With: KITTY SANTANA MD Primary Care Physician: VENKAT CORREA MD Patient sees these Specialists Dr. Joel Rivera Level of Patient Care: Critical Care (CRI) Resident Review Statement Resident Statement: examined this patient Other Findings: My assessment above KITTY SANTANA 07/31/16 0518: Attending MD Review Statement Attending Statement Attending MD Statement: examined this patient, discuss w/resident/PA/DENTAL SCHEDULER, agreed w/resident/PA/DENTAL SCHEDULER, discussed with family, reviewed EMR data (avail), reviewed images, amended to note Attending Assessment/Plan: CC: Abdominal pain, diarrhea PMH: Non-small cell lung cancer status post right lobectomy, suspected pancreatic metastases, COPD, recently diagnosed PE, gallbladder drain, on peg tube Patient had 5 days of abdominal pain and 3 days of diarrhea, nonbloody, no nausea vomiting decreased intake through PEG tube, no shortness of breath cough or palpitations or any urinary frequency a febrile at home. Vitals: Afebrile, tachycardic in 120s, hypotensive in 80s / 50s in ER saturating well on room air. On exam: A O 3, cachectic, pale, mucosa extremely dry, neck supple, no lymphadenopathy, no JVD, peripheral pulses intact but extremities cold. Abdomen: Tender to touch, no guarding or rigidity, bowel sounds present, PEG tube present, gallbladder drain present. CVS: S1-S2, RRR. RS: Clear to auscultate bilaterally. No focal neurological deficit. Labs: WBC 67, neutrophils 96% hemoglobin 11.4, sodium 128, lactate 2.0, alkaline phosphatase 175, albumin 1.8. INR 1.[address] chest, CT abdomen pelvis with IV contrast: No significant change in the large chronic ex vacuo right hydropneumothorax, predominantly gas with a trace effusion. Diffuse wall thickening and inflammation in the colon, most likely due to an infectious pancolitis. A and P #1 hypotension: ? Volume depletion secondary to diarrhea with decreased by mouth intake versus sepsis. Patient has pancolitis on CT scan, check C. difficile on stool, blood culture, urine culture, culture from gallbladder drain if possible, continue aggressive hydration, Patient received 4 L IV fluids in ER, continue IV boluses at 250 mL to 500 mL per hour according to blood pressure and respiratory status to keep map above 65, start Levophed if map drops below 60, continue ceftriaxone and metronidazole IV. More concerning part is that patient did not have stool output, repeat x-ray abdomen in a.m. close watch on I's and O's, continue Wolf catheter. Decrease urinary output in ER. #2 recently diagnosed PE: Continue warfarin dose according to INR #3 metastatic lung cancer #4 goals of care: DNR/ DNI. Previous medical record mentioned no heroic measures and DNR and DNI. I discussed goals of care at length with family and patient about her wishes. patient mentioned DNR and DNI very clearly. I specifically asked about pressors, family had a detailed discussion and concluded that go for pressors if required. I also discussed if patient declines overnight or tomorrow they would consider hospice care TTS 45 min
--- NOTE | 2016-07-30 21:36 | NUR ---
CONTACT INFORMATION. DTR NAVIN [phone], KILO [phone]
--- NOTE | 2016-07-30 22:33 | RADIOLOGY REPORT ---
EXAMINATION: XR PORTABLE CHEST CLINICAL INFORMATION: Confirm central line placement. COMPARISON: 06/29/2016 TECHNIQUE: Portable view of the chest was obtained. FINDINGS: Right IJ central venous catheter terminates near the cavoatrial junction. Cardiac and mediastinal contours are unchanged within normal limits. Calcific atherosclerosis is present at the thoracic aorta. Again seen is a large vacuo pneumothorax on the right, unchanged from prior. Postsurgical changes of prior right lower lobectomy are evident. Pleural scarring is present at the right upper and middle lobes. Emphysema is evident in the left lung. No focal consolidation. Lesion seen in the lateral costophrenic sulcus of the left lower lobe are better seen on prior CT. Percutaneous biliary stent is evident in the right upper quadrant. Soft tissues are otherwise unremarkable. IMPRESSION: 1. Right IJ central venous catheter terminates near the cavoatrial junction 2. Chronic large extra-axial right pneumothorax, unchanged. 3. Nodular opacities in the left lower lobe are better seen on recent CT.
--- NOTE | 2016-07-30 22:43 | NUR ---
BED ASSIGNMENT 105
--- NOTE | 2016-07-30 22:45 | NUR ---
EARL PLACED WITHOUT DIFFICULTY. URINE TRIO SENT TO LAB
--- NOTE | 2016-07-30 22:50 | NUR ---
PT LOG ROLLED FOR LINEN CHANGE. NOTED TO HAVE NO SKIN BREAKDOWN BUT HAS BLANCHABLE REDNESS AT MULTIPLE PRESSURE POINTS INCLUDINE SHOULDER BLADES, SPINE ALONG BACK, BUTTOCKS/SACRAL AREA.
--- NOTE | 2016-07-30 23:08 | NUR ---
REPORT CALLED TO ASHLY IN ICU
--- NOTE | 2016-07-30 23:10 | NUR ---
CENTRAL LINE IN PROPER PLACE. IVF MOVED TO CENTRAL LINE. NEW TUBING APPLIED PRIOR TO TRANSFER TO CENTRAL LINE. LACTIC ACID SENT TO LAB
--- NOTE | 2016-07-30 23:11 | NUR ---
CONFIRMED IVF ORDERS WITH DR MANZO. DR MANZO STATES NOT TO GIVE 5TH IVF BOLUS. AFTER 4TH LITER OF FLUID INFUSED, START A 500CC BOLUS AT 500CC/HR THEN DECREASE RATE TO 250/HR. DR MANZO NOTIFIED OF BLOOD PRESSURE OF 100/61
--- NOTE | 2016-07-30 23:48 | NUR ---
RECEIVED PT FROM ER/ A/OX3, ST 110-120'S. BP 104/60. NC 2L 100%, CLEAR LUNGS DIMINSHED ON RIGHT SIDE FROM PREVIOUS LOBECTOMY. G TUBE CLAMPED. T TUBE WITH GRN LIQUID OUTPUT. EARL SEDIMENT YELLOW OUTPUT. PT IS MALNOURSHED, BONY PROMINENCES RED BLANCHABLE, NO BREAKDOWN NOTED. RIJ TLC. CVP 3. NS 500ML/HR. MD ARROYO MADE AWARE OF CVP. PT TO RECIEVE COUMADIN AND LOVENOX PER MD MANZO DUE TO SUBTHERAPEUTIC LEVEL INR.
[2016-07-31] VITALS: BP 104/60
--- NOTE | 2016-07-31 03:00 | NUR ---
0120 B/P 60/36, PT REMAINS AROUSABLE TO NAME. 500ML NS BOLUS PER MD PIEDRA. CVP 4. 0130 B/P 58/44, LEVOPHED GTT STARTED AT 5MCG/MIN PER MD PIEDRA. 0200 B/P 82/40, LEVOPHED TITRATED TO 17MCG/MIN, 1000ML NS BOLUS PER MD SANTACRUZ. CVP 8. 0210 LEVOPHED MAXED 20MCG/MIN MD SANTACRUZ MADE AWARE. 0300 NO URINE OUTPUT FOR LAST HOUR, CVP 6, PER MD SANTACRUZ GIVE 500ML NS BOLUS. FAMILY CALLED BY MD PIEDRA DUE TO DETERIORATION OF BLOOD PRESSURE. PT REMAINS DNR/DNI. B/P 96/52. NSR 100.
--- NOTE | 2016-07-31 03:06 | Event Note ---
Event Note Event Note: At 1:20 AM, patient's blood pressure dropped down to 60/36. Patient was lethargic but arousable. Her urine output was low. 500 mL bolus of NS was administered and Levophed drip was started. Plan was discussed with Dr. Lockhart who was in agreement. Levophed drip was gradually uptitrated to a maximum 20 mcg /minute as patient remained hypotensive. Patient was aggressively resuscitated with NS boluses for a total of 8.5 L of fluid. Her MAP was maintained around 65. Patient's family was called and made aware of her clinical deterioration who came to evaluate her at bedside. Around 4 AM, patient's mental status began to improve. She would follow commands and answer questions appropriately. Patient's blood pressure remained stable in the 90-100s/50-60s range with the NS boluses and Levophed drip for blood pressure support. Will continue to monitor patient closely.
[2016-07-31 05:15] LABS: ABSOLUTE BASOPHIL COUNT 0 /CUMM (0.0-0.2); ABSOLUTE EOSINOPHIL COUNT 0.1 /CUMM (0.0-0.7); ABSOLUTE GRANULOCYTE CT 71.6 /CUMM (1.4-6.5); ABSOLUTE LYMPH COUNT 1.6 /CUMM (1.2-3.4); BASOPHIL % 0 % (0.0-2.0); EOSINOPHIL % 0.1 % (0-5); GRANULOCYTE % 96.5 % (42.2-75.2); HEMATOCRIT 30.2 % (37-47); MEAN CORPUSCULAR HGB 34.9 PG (27.0-31.0); MEAN CORPUSCULAR HGB CONC 33.8 G/DL (33.0-37.0); MEAN CORPUSCULAR VOLUME 103.1 FL (81.0-99.0); MEAN PLATELET VOLUME 8.8 FL (7.4-10.4); PLATELET COUNT 498 /CUMM (130-400); RBC DISTRIBUTION WIDTH 17.5 % (11.5-14.5); RED BLOOD CELL CT 2.93 /CUMM (4.20-5.40)
[2016-07-31 05:56] LABS: WHITE BLOOD CELL COUNT 74.2 /CUMM (4.8-10.8)
--- NOTE | 2016-07-31 07:32 | Cons- CRCU ---
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 Patient reports sharp, 9/10, constant, epigastric and right hypochondrium abdominal pain that radiating to the back. Nothing seems to relive her pain. Pain is associated with chills and diarrhea for the past 3 days. She reported 5 non-bloody watery diarrhea during the last 24 hours. patient was on antibiotics one month ago. pt also has dysuria. She denies fevers, nausea or vomiting. She also denies dyspnea, palpitation, dizziness, or lightheadedness. Allergies/Medications Allergies: Coded Allergies: codeine (HYPERVENTILATE - SOB 11/18/15) Home Med List: Albuterol Sulfate (Proair Hfa) 90 MCG HFA.AER.AD 2 PUF INH Q4-6 PRN PRN BREATHING PROBLEMS (Reported) Esomeprazole (Nexium) 40 MG CAPSULE.DR 1 CAP PO DAILY GI (Reported) Estradiol (Vivelle-Dot) 1 EACH PATCH.TDSW 0.0375 MG TD SW HORMONE REPLACEMENT (Reported) Fluticasone/Vilanterol (Breo Ellipta 100-25 Mcg INH) 100 MCG-25 MCG/DOSE BLST.W.DEV BREATHING PROBLEMS (Reported) Tramadol HCl 50 MG TABLET 1 TAB PO Q6P PRN PAIN (Reported) Warfarin Sodium (Coumadin) 4 MG TABLET 1 TAB PO DAILY BLOOD THINER Hold this medication today (07/04). please start taking this medication 4 mg begning from 07/04/16. Check INR on 07/05/16 and report result to PCP, so he can dose medication accordingly. Review of Systems Review of Systems Constitutional: Reports: see HPI, chills, weakness. Denies: diaphoresis, fever. Cardiovascular: Denies: chest pain, orthopena, palpitations, peripheral edema, syncope. Respiratory: Denies: cough, hemoptysis, short of breath. GI: Reports: abdominal pain, diarrhea (watery non-bloody). Denies: constipation, nausea, bloody stool, vomiting. Genitourinary: Denies: dysuria. 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 Home Services at Home: Nursing, Occupational Therapy, Physical Therapy, Speech Therapy, Tube Feedings Smoking Status: Former Smoker ETOH Use: denies use Illicit Drug Use: denies illicit drug use Functional Ability ADLs Independent: dressing, eating, toileting, bathing. Exam & Diagnostic Data Last 24 Hrs of Vital Signs/I&O Vital Signs Date Time Temp Pulse Resp B/P Pulse O2 O2 Flow FiO2 Ox Delivery Rate 07/31 1420 Nasal 3.0L Cannula 07/31 1420 97 Nasal 3.0L Cannula 07/31 0800 97 Nasal 3.0L Cannula 07/31 0800 98.7 110 15 108/60 97 Nasal 3.0L Cannula 07/31 0430 104 110/63 07/31 0400 97 Nasal 3.0L Cannula 07/31 0137 99.1 07/31 0135 112 58/44 07/31 0016 100.7 07/31 0000 100.7 117 12 104/60 100 Nasal 2.0L Cannula 07/30 2350 100 Nasal 2.0L Cannula 07/30 2309 99.5 122 18 100/61 98 Nasal 2.0L Cannula 07/30 2106 121 22 94/55 Nasal 2.0L Cannula 07/30 2007 116 90/50 07/30 1850 97.8 113 16 92/50 95 Room Air 07/30 1751 119 18 84/50 Intake & Output 07/31 1600 07/31 0800 07/31 0000 Intake Total 800 5813 4000 Output Total 325 310 300 Balance 475 5503 3700 Intake, IV 800 5773 4000 Intake, Oral 0 0 Intake, Tube 40 Irrigant Number 0 0 Bowel Movements Output, Other 125 90 Output, Urine 200 220 300 Patient 43.29 kg 33.311 kg Weight Physical Exam General Appearance: alert, awake, anxious, lethargic, severe distress, thin Head: atraumatic, normal appearance Neck: normal inspection, supple Respiratory: decrease air-entry on the right lung. with normal left lung ascultation Cardiovascular: regular rate/rhythm Gastrointestinal: soft, tenderness around the feeding tube, which located in the LUQ. also tenderness over epigastric area Extremities: no edema (in LE B/L) Last 48 Hrs of Labs/Alcon: Laboratory Tests 07/31/16 0405: Anion Gap 6, Estimated GFR > 60, Glucose 78, Calcium 7.0 L, Phosphorus 4.4, Magnesium 1.7, Total Bilirubin 0.6, AST 14, ALT 34, Albumin 1.5 L, PT 18.0 H, INR 1.72 H, CBC w Diff MAN DIFF ORDERED, RBC 2.93 L, MCV 103.1 H, MCH 34.9 H , RDW 17.5 H, MPV 8.8, Gran % 96.5 H, Lymphocytes % 2.1 L, Monocytes % 1.3 L , Eosinophils % 0.1, Basophils % 0 L, Absolute Granulocytes 71.6 H, Segmented Neutrophils 93 H, Band Neutrophils 2, Absolute Lymphocytes 1.6, Monocytes 5, Absolute Monocytes 1.0 H, Absolute Eosinophils 0.1, Absolute Basophils 0, Platelet Estimate INCREASED, Polychromasia 1+, Poikilocytosis 1+, Anisocytosis 1 +, Macrocytic Cells 1+, Ovalocytes 1+, Stomatocytes FEW, PUBS MCHC 33.8, Fld Total RBCs Counted 100 07/31/16 0100: Lactic Acid Cancelled 07/30/16 2255: Lactic Acid 0.8, PT Cancelled, INR Cancelled 07/30/16 2245: Urine Color YEL, Urine Clarity CLEAR, Urine pH 6.0, Ur Specific [place] 1.015, Urine Protein NEG, Urine Ketones NEG, Urine Nitrite NEG, Urine Bilirubin NEG, Urine Urobilinogen 0.2, Ur Leukocyte Esterase NEG, Ur Microscopic EXAM NOT REQUIRED, Urine Hemoglobin NEG, Urine Glucose NEG 07/30/16 1630: Anion Gap 5, Estimated GFR > 60, BUN/Creatinine Ratio 34.0 H, Glucose 84, Lactic Acid 2.0, Calcium 7.7 L, Total Bilirubin 0.6, AST 16, ALT 37, Alkaline Phosphatase 175 H, Troponin I < 0.01, Total Protein 4.5 L, Albumin 1.8 L, Globulin 2.7, Albumin/Globulin Ratio 0.7 L, Amylase < 30 L, Lipase < 10 L 07/30/16 1500: PT 14.6 H, INR 1.40 H, APTT 31, CBC w Diff MAN DIFF ORDERED, RBC 3.35 L, MCV 102.5 H, MCH 34.0 H, RDW 17.6 H, MPV 8.4, Gran % 96.6 H, Lymphocytes % 1.5 L, Monocytes % 1.9, Eosinophils % 0, Basophils % 0 L, Absolute Granulocytes 65.5 H, Segmented Neutrophils 88 H, Band Neutrophils 8 H, Absolute Lymphocytes 1.0 L, Lymphocytes 2 L, Monocytes 2, Absolute Monocytes 1.3 H, Absolute Eosinophils 0, Absolute Basophils 0, Platelet Estimate VERIFIED BY SMEAR, Anisocytosis 1+, Macrocytic Cells 1+, PUBS MCHC 33.2 Assessment/Plan Impression/Plan: 76/F with PMH for 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 Patient present with symptom of shock that can be septic or hypovolemic. Pt has advance stage malignant cancer. due to her very poor prognosis a discussion was conducted with the family about the plan of making her hospice care. All agreed on the plan. -we will change her code status to Hospice -we will use morphine as needed for patient comfortable -we will use TRC as needed for patient comfortable -we will decrease pressors as planed Consult Acknowledgment - Thank you for your consult request. SHA NARVAEZ MD 07/31/16 0949: General Information and HPI Consulting Request Requested By: Garry Assessment/Plan Other Findings/Comments: Impression 76F hx of nsclc, gi malignancy, pe, shock likely hypovolemic vs septic, ?c.diff? Plan -secure TLC -c.diff check -c.diff precautions -hospice evaluation -plan for comfort measures if all in agreement -patient comfortable with morphine -if plan for hospice will not escalate abx for broader coverage such as ceftaz/ vanco etc -would cont pressors until decision for care is made -will decide on a/c pending goals of care family discussion held TTS including family meeting 75 min Consult Acknowledgment - Thank you for your consult request.
[2016-07-31 08:00] VITALS: BP 108/60
--- NOTE | 2016-07-31 15:46 | Patient Discharge Instructions ---
Discharge Instructions General Discharge Information You were seen/treated for: Septic shock Acute Coronary Syndrome Inclusion Criteria At DC or during hospital stay patient has or had the following: ACS DIAGNOSIS No Discharge Core Measures Meds if any: Prescribed or Continued at Discharge Meds if any: NOT Prescribed or Continued at Discharge Congestive Heart Failure Inclusion Criteria At DC or during hospital stay patient has or had the following: CHF DIAGNOSIS No Discharge Core Measures Meds if any: Prescribed or Continued at Discharge Meds if any: NOT Prescribed or Continued at Discharge Cerebrovascular accident Inclusion Criteria At DC or during hospital stay patient has or had the following: CVA/TIA Diagnosis No Discharge Core Measures Meds if any: Prescribed or Continued at Discharge Meds if any: NOT Prescribed or Continued at Discharge Venous thromboembolism Inclusion Criteria VTE Diagnosis No VTE Type NONE VTE Confirmed by (Test) NONE Discharge Core Measures - Per Current guidelines, there needs to be overlap - treatment for the first 5 days of Warfarin therapy. - If discharged on Warfarin prior to 5 days of - overlap therapy, the patient will need to be - assessed for post discharge needs including - *Post discharge parental anticoagulation - *Warfarin and/or parental anticoagulation education - *Follow up date to check INR post discharge At least 5 days overlap therapy as Inpatient No Meds if any: Prescribed or Continued at Discharge Note: Overlap Therapy is Warfarin and Anticoagulant Meds if any: NOT Prescribed or Continued at Discharge
== END 2016-07-31 16:30 | disposition hospice, home (50) ==
LOC: ENRESERVTM → ERH → ENRESERVDT → ERH 13:34 → CRI 19:59 → ERHI 19:59 → CRI 23:31
PROVIDERS: Physician Assistant; Preventive Medicine Public Health & General Preventive Medicine; ADMIT Internal Medicine
DX: A41.9 Sepsis, unspecified organism (principal); K51.00 Ulcerative (chronic) pancolitis without complications; C34.90 Malignant neoplasm of unspecified part of unspecified bronchus or lung; C78.89 Secondary malignant neoplasm of other digestive organs; Z86.711 Personal history of pulmonary embolism; Z79.01 Long term (current) use of anticoagulants; Z86.718 Personal history of other venous thrombosis and embolism; J44.9 Chronic obstructive pulmonary disease, unspecified; E78.5 Hyperlipidemia, unspecified; I95.9 Hypotension, unspecified; K21.9 Gastro-esophageal reflux disease without esophagitis; K75.4 Autoimmune hepatitis; Z51.5 Encounter for palliative care
CPT/HCPCS: 6020; 87075; 36415; 74177; 81003; 82436; 87040; 87045; 87071; 87086; 87147; 93005; 93010; 96361; 96374; 96376; 99291; G0378; J0131; J0696; J1650; J3370; J3490; J7040; J7060

== ENCOUNTER 2016-07-31 16:38 | Inpatient (IN) | payer OTHER ==
[~2016-07-31 16:38] MED LIST changes: +TRAMADOL HCL50 M1 PO
--- NOTE | 2016-07-31 16:55 | PN- Att Addend ---
PATRIA MCGREGORSAIDA 07/31/16 1654: Attending Addendum Attending Brief Note Hospice Admission H&P Chief Complaint: Eval for hospice Source: Patient, family, medical records Exam Limitations: Fatigue Associated Symptoms: Fatigue History of Present Illness: Patient is a 76-year-old female who presented to the emergency room yesterday with abdominal pain and diarrhea. She has a past medical history of non-small cell adenocarcinoma of lung with metastasis to the pancreas status post right lower lobe lobectomy and lymph node dissection on 11/03/2015. Stool for C. difficile canceled as patient had no further bowel movement, white blood cell count 74.2, CT of the abdomen showed likely infectious pancolitis. Patient was being treated with vancomycin and Ceftriaxone. She became hypotensive requiring IV fluid resuscitation and levophed drip. After discussion with critical care attending patient opted for hospice level of care due to poor prognosis in the setting of advanced lung cancer. Patient had recent admission in June for bilateral pulmonary embolism and bilateral DVT. Patient had modified barium swallow and speech therapy evaluation, noted to have dysphasia which had resulted in aspiration pneumonia and she had PEG tube placed on 06/29/2016. Allergies: Codeine Review of Systems: Patient denies any discomfort. She denies dyspnea, abdominal discomfort, diarrhea. Last bowel movement was prior to admission. She is fatigued. Past Medical History: Hyperlipidemia, COPD, GERD, autoimmune hepatitis, spinal stenosis, OA, adenocarcinoma of lung with metastasis to pancreas, dysphasia with PEG tube placement 06/2016, pulmonary embolism, DVT. Past Surgical History: PEG tube placement, NARESH, appendectomy, cholecystectomy, back surgery, right lower lobectomy lung. Family History: Brother with pancreatic cancer, sister with myocardial infarction. Psychosocial History: Lives at home with . 3 adult children, one with intellectual disability living at [facility], was on CANsupport in community. Functional Ability: Independent with ADLs Exam and Diagnostic Data: Vital signs: T-98.7; HR-110; RR-15; BP-108/60 Physical Exam: General: Sleepy elderly female lying in bed, NAD. Skin: Warm and dry HEENT: PERRL, oral mucosa dry Heart: Regular rate and rhythm, S1-S2 Lungs: Clear bilaterally, unlabored Abdomen: Soft, nontender, positive bowel sounds, PEG tube : Wolf with dark yellow urine Extremities: Mildly edematous all 4 extremities, no clubbing or cyanosis Neuro/Psych: Sleepy but responds to all questions appropriately. Told CT hospice nurse its time Labs/Imaging: WBC 74.2, sodium 132, albumin 1.5, urinalysis negative CT of abdomen and pelvis showed 3 rounded foci of soft tissue density in left lung lateral costophrenic sulcus, most compatible with metastatic disease; slight increase in size of an 8 mm spiculated nodule in left upper lobe also concerning for metastatic disease; unchanged enlarged AP window lymph node. Diffuse wall thickening and inflammation in the colon, most likely due to an infectious pancolitis. Assessment/Plan: 76-year-old female with history of non-small cell adenocarcinoma of lung with metastasis to the pancreas, dysphagia with PEG tube, here with sepsis and pancolitis requiring levophed drip to maintain blood pressure who has now opted for hospice level of care. Orders are written. Levophed currently being titrated off. Morphine sulfate 2 mg IV/subcutaneous every 1 hour as needed for dyspnea/pain. Lorazepam 1 mg IV/subcutaneous every 2 hours as needed for anxiety/restlessness. Scopolamine patch when for necessary secretions, Robinul 0.2 mg IV/subcutaneous every 4 hours as needed for secretions. SHA NARVAEZ MD 08/01/16 1039: Attending Addendum Attending Brief Note Agree with above. Pt seen as [facility] consultation known to me for lung cancer/pancreatic ca. Has been declining here with shock, requiring pressors. Pt and family opted for hospice, admitted to hospice. Goals of care to comfort.
--- NOTE | 2016-08-01 10:42 | PN- Att Addend ---
Attending Addendum Attending Brief Note pt seen and examined on hospice at bedside comfortable but obtudned this am recieved opiates, robinul, scopolamine continue comfort measures as ordered
--- NOTE | 2016-08-02 15:02 | Discharge Summary ---
Visit Information Visit Dates Admission Date: 07/31/16 Discharge Date: 08/01/16 Hospital Course Course Attending Physician: SHA NARVAEZ MD Primary Care Physician: VENKAT CORREA MD Hospital Course: 76-year-old female with history of non-small cell adenocarcinoma of lung with metastasis to the pancreas, dysphagia with PEG tube, here with sepsis and pancolitis requiring levophed drip to maintain blood pressure who has now opted for hospice level of care. She was kept comfortable with morphine for pain until she passed peacefully on 08/01/16. Allergies: Coded Allergies: codeine (HYPERVENTILATE - SOB 11/18/15) Disposition Summary Disposition Principal Diagnosis: Sepsis Pancolitis Non-small cell adenocarcinoma of lung with metastasis to pancreas Additional Diagnosis: Dysphagia COPD Discharge Disposition: Discharge Instructions General Discharge Information Code Status: Hospice Patient's Diet: N/A Patient's Activity: N/A Follow-Up Instructions/Appts: N/A Copies To: VENKAT CORREA MD
== END 2016-08-01 18:30 | disposition expired | DRG 872 ==
LOC: CRI 16:38
PROVIDERS: ADMIT Internal Medicine Critical Care Medicine
DX: A41.9 Sepsis, unspecified organism (principal); C25.9 Malignant neoplasm of pancreas, unspecified; C34.90 Malignant neoplasm of unspecified part of unspecified bronchus or lung; Z51.5 Encounter for palliative care
CPT/HCPCS: CCU; J0780